=== PATIENT | male | born 1985 | race Caucasian/White ===

== ENCOUNTER 2017-07-04 19:54 | Emergency (ER) | payer SELFPAY ==
[~2017-07-04] VITALS: Ht 188 cm; Wt 85.7 kg
[2017-07-04 20:39] VITALS: BP 135/72
--- NOTE | 2017-07-04 20:45 | NUR ---
TO LOBBY, A/W BED, MARK, VSLexus, ERMAleta NOTED
--- NOTE | 2017-07-04 22:42 | NUR ---
PATIENT AMBULATED TO OVERFLOW CHAIR 4.
--- NOTE | 2017-07-04 22:53 | NUR ---
PATIENT IS A 31 Y/O MALE WHO PRESENTS TO THE ED C/O LACERATION. PT STATES, "I WAS CUTTING ONIONS AND I CUT IT." PT DENIES PAIN. NOTED BLEEDING TO LEFT 5TH DIGIT, CMS INTACT, BLEEDING NOTED WITH SELF WRAPPED DRESSING. PT AAOX4, RR EVEN/UNLABORED. PT REPOSITIONED FOR COMFORT, PT SITTING IN CHAIR. ER MD DR. CROOKS NOTIFIED. WILL CONTINUE TO MONITOR.
[2017-07-04] MEDS ORDERED: SILVER NITRATE APPLICATOR 1 EA SWAB TP ONE ×2 (23:25)
[2017-07-05 00:02] VITALS: BP 130/80
== END 2017-07-05 00:02 | disposition home or self-care (01) ==
LOC: MED 19:54
DX: S61.217A Laceration without foreign body of left little finger without damage to nail, initial encounter (principal); X58.XXXA Exposure to other specified factors, initial encounter; Y93.89 Activity, other specified; Y92.89 Other specified places as the place of occurrence of the external cause; Y99.8 Other external cause status
CPT/HCPCS: 99283